=== PATIENT | female | born 1950 | race Caucasian/White ===

== ENCOUNTER → 2017-09-19 | Outpatient (CLI) | payer MEDICARE ==
[2017-09-19 10:56] LABS: Urine Bacteria NONE SEEN /hpf (None Seen); Urine Blood Negative /uL (Negative); Urine Mucus FEW (None Seen); Urine Specific Gravity 1.021 (1.001-1.035); Urine WBC 1 /hpf (0 - 5)
[2017-09-19 10:59] LABS: Basophils # (auto) 0.1 uL; Basophils % (auto) 0.6 % (0.0-2.0); Eosinophils # (auto) 0.2 uL; Eosinophils % (auto) 2.4 % (0.0-7.0); Hematocrit 43.6 % (36.0-46.0); Hemoglobin 14.6 g/dL (12.2-16.2); Lymphocytes # (auto) 2.1 uL; Lymphocytes % (auto) 22.8 % (10.0-50.0); Mean Corpuscular Hemoglobin 31.6 pg (28.0-32.0); Mean Corpuscular Hgb Conc. 33.5 g/dL (32.0-36.0); Mean Corpuscular Volume 94.4 fL (80.0-100.0); Monocytes # (auto) 0.7 uL; Neutrophils # (auto) 6.3 uL; Neutrophils % (auto) 67.2 % (37.0-80.0); Nucleated Red Blood Cells % 0.1 %; Platelet Count (auto) 302 10^3/uL (140-450); Red Blood Cells 4.62 10^6/uL (4.0-5.20); Red Cell Distribution Width 14.6 % (11.8-14.3); White Blood Cell 9.4 10^3/uL (4.4-10.8)
[2017-09-19 11:07] LABS: INR 0.97 (0.9-1.15); Partial Thromboplastin Time 25.5 sec (23.78-33.04); Prothrombin Time 10.4 sec (9.27-12.13)
[2017-09-19 11:25] LABS: Albumin 3.8 g/dL (3.4-5.0); BUN/Creatinine Ratio 14.1; Bilirubin, Total 0.7 mg/dL (0.2-1.0); Calcium 9.1 mg/dL (8.5-10.1); Potassium 4.1 mmol/L (3.5-5.1); Total Protein 7.9 g/dL (6.4-8.2)
== END | disposition home or self-care (01) ==
LOC: LAB 10:24
PROVIDERS: ATTEND Orthopaedic Surgery
DX: M65.312 Trigger thumb, left thumb (principal); Z79.01 Long term (current) use of anticoagulants
CPT/HCPCS: 36415; 80053; 81001; 85025; 85610; 85730

== ENCOUNTER 2018-05-13 08:14 | Day surgery (SDC) | payer MEDICARE ==
[~2018-05-13] VITALS: Ht 165.1 cm; Wt 77.2 kg
[2018-05-13] MEDS ORDERED: PROP225C9 PO (09:32)
[2018-05-13] MEDS ORDERED: METO25TA5 PO (09:32)
[2018-05-13] MEDS ORDERED: AMLO5TAB13 PO (09:32)
[2018-05-13] MEDS ORDERED: APIX5TAB OR (09:32)
[2018-05-13] MEDS ORDERED: METO-158 PO (09:32)
[2018-05-13] MEDS ORDERED: PANT40T PO (09:32)
[2018-05-13] MEDS ORDERED: ATOR40TA52 PO (09:32)
[2018-05-13] MEDS ORDERED: SPIR25TA8 PO (09:32)
[2018-05-13 09:57] LABS: INR 0.97 (0.9-1.15); Partial Thromboplastin Time 28.7 sec (23.78-33.04); Prothrombin Time 10.4 sec (9.27-12.13)
[2018-05-13] MEDS ORDERED: ceFAZolin 1GM/50ML 50 ML IV ONE (09:59)
[2018-05-13] MEDS ORDERED: LIDOCAINE 2%HCL (LOCAL ANESTH.) INJ 20ML MDV ONE (10:09)
[2018-05-13] MEDS ORDERED: IOHEXOL 350 MG/ML 100ML IJ ONE ×2 (10:09→12:30)
[2018-05-13] MEDS ORDERED: VANCOMYCIN HCL 1000 MG VL ONE (12:03)
[2018-05-13] MEDS ORDERED: fentaNYL CITRATE 100 MCG/2 ML VL ONE ×4 (12:03)
[2018-05-13] MEDS ORDERED: MIDAZOLAM HCL 1MG/1ML-2 ML VIAL ONE (12:04)
[2018-05-13] MEDS ORDERED: VANCOMYCIN 1GM/250ML 250 ML IV ONE ×7 (12:04)
[2018-05-13] MEDS ORDERED: BACITRACIN INJ 50000 UNIT VIAL ONE (12:04)
[2018-05-13] MEDS ORDERED: diphenhdrAMINE HCL 50 MG/1 ML VL ONE (12:20)
[2018-05-13] MEDS ORDERED: ceFAZolin 1GM VL ONE (12:46)
[2018-05-13] MEDS ORDERED: NITROGLYCERIN 0.4 MG SL TAB SL PRN (14:45)
[2018-05-13] MEDS ORDERED: ACETAMINOPHEN 325 MG TAB PO PRN (14:45)
[2018-05-13] MEDS ORDERED: HYDROcodone-ACET 5/325MG TAB PO PRN (14:45)
[2018-05-13] MEDS ORDERED: MORPHINE SULFATE 4 MG/ML SYR/VIAL IV PRN (14:45)
[2018-05-13] MEDS ORDERED: DOXYCYCLINE 100 MG TAB/CAP PO ONE (17:00)
[2018-05-13] MEDS ORDERED: METOPROLOL TARTRATE 50 MG TAB PO SCH (18:00)
[2018-05-13] MEDS ORDERED: VANCOMYCIN 1GM/250ML 250 ML IV SCH (22:00)
[2018-05-13] MEDS ORDERED: PROPAFENONE HCL 150 MG TAB PO SCH (22:00)
[2018-05-13] MEDS ORDERED: ATORVASTATIN 20 MG TAB PO SCH (22:00)
[2018-05-14] MEDS ORDERED: METOPROLOL TARTRATE 25 MG TAB PO SCH (07:00)
[2018-05-14] MEDS ORDERED: DOXYCYCLINE 100 MG TAB/CAP PO SCH (10:00)
[2018-05-14] MEDS ORDERED: amLODIPine BESYLATE 5 MG TAB PO SCH (10:00)
[2018-05-14] MEDS ORDERED: PANTOPRAZOLE 40 MG TAB PO SCH (10:00)
[2018-05-14] MEDS ORDERED: SPIRONOLACTONE 25 MG TAB PO SCH (10:00)
== END 2018-05-13 18:37 | disposition home or self-care (01) ==
LOC: CATH 08:14
PROVIDERS: ATTEND Specialist
DX: I49.5 Sick sinus syndrome (principal); I10 Essential (primary) hypertension; E78.5 Hyperlipidemia, unspecified; J44.9 Chronic obstructive pulmonary disease, unspecified; Z87.891 Personal history of nicotine dependence; Z79.899 Other long term (current) drug therapy
CPT/HCPCS: 33208; 36415; 71045; 85610; 85730; 93005; A6257; C1785; C1898; J0690; J2250; J3010; J3370; J7030; Q9967; 99152